=== PATIENT | male | born 1990 | race Caucasian/White ===

== ENCOUNTER 2023-08-31 13:11 | Inpatient (IN) | payer MEDICAID ==
[~2023-08-31] VITALS: Ht 182.9 cm; Wt 86.6 kg
[2023-08-31 13:16] VITALS: O2SAT 96
[2023-08-31 14:29] LABS: DIFFERENTIAL COMMENT 1; HEMATOCRIT. 42.8 % (42.0-52.0); HEMOGLOBIN. 14.5 g/dL (14.0-18.0); MEAN CORPUSCULAR HEMOGLOBIN 30.9 pg (28.0-32.0); MEAN CORPUSCULAR VOLUME 90.8 fL (80.0-94.0); MEAN PLATELET VOLUME 7.6 fl (7.4-10.4); PLATELET 306 x1000/uL (130-400); RED BLOOD CELL COUNT 4.71 mill/uL (4.7-6.1); RED CELL DISTRIBUTION WIDTH 12.8 % (11.6-14.6); WHITE BLOOD COUNT 18.7 x1000/uL (4.5-11.0)
[2023-08-31 15:00] LABS: PLATELET ESTIMATE NORMAL
[2023-08-31 15:06] LABS: CHLORIDE 112 mEq/L (98-107); INDEX HEMOLYSI 1 (1-3); INDEX ICTERIC 1 (1-4); INDEX LIPEMIC 1 (1-3); POTASSIUM 3.6 mEq/L (3.5-5.1); SODIUM 141 mEq/L (136-145)
[2023-08-31 15:20] LABS: ALANINE AMINOTRANSFERASE 39 IU/L (13-61); ALBUMIN 3.5 g/dL (3.4-5.0); ASPARTATE AMINOTRANSFERASE 27 IU/L (15-37); BILIRUBIN TOTAL 0.3 mg/dL (0.1-1.0); CALCIUM 8.3 mg/dL (8.5-10.1); CARBON DIOXIDE 20 mEq/L (21-32); CREATININE 1.1 mg/dL (0.6-1.3); ETHANOL BLOOD < 10 mg/dL (<10); GLUCOSE 138 mg/dL (70-105); NT PRO B-TYPE NATRIURETIC PEP 23 pg/mL (5-125); PROTEIN TOTAL 7.7 g/dL (6.0-8.3); TROPONIN I HIGH SENSITIVITY 14 ng/L (<78); UREA NITROGEN BLOOD 20 mg/dL (7-21)
[2023-08-31 15:37] LABS: BG BASE EXCESS -3.6 mmol/L (-2.0-2.0); BG CARBOXYHEMOGLOBIN 0.9 % (0.5-1.5); BG METHEMOGLOBIN 0.3 % (0.0-1.5); BG OXYGEN SATURATION 83.8 % (92.0-98.5); BG OXYHEMOGLOBIN 82.8 % (94.0-97.0); BG PH 7.372 (7.350-7.450); BG PO2 47.6 mmHg (75.0-100.0); BG SAMPLE SITE RIGHT BRACHIAL; BG TOTAL HEMOGLOBIN 15.3 g/dL (12.0-18.0); BG VENT MODE ROOM AIR
[2023-08-31] MEDS ORDERED: CEFTRIAXONE 1GM PREMIX 50 ML IV ONE (16:00)
[2023-08-31] MEDS ORDERED: SODIUM CHLORIDE 0.9% 1,000 ML IV ONE (16:00)
[2023-08-31] MEDS ORDERED: AZITHROMYCIN 500MG/250ML 250 ML IV ONE (16:00)
[2023-08-31] MEDS ORDERED: ONDANSETRON HCL 4MG/2ML INJ IV PRN (17:30)
[2023-08-31] MEDS ORDERED: ACETAMINOPHEN 325MG TABLET PO PRN (17:30)
[2023-08-31] MEDS ORDERED: NALOXONE HCL 0.4 MG/ML 1ML VIAL IV PRN (17:30)
[2023-08-31 20:00] VITALS: BP 114/72; PULSE 95; RESP 20; TEMP 99
[2023-08-31 20:30] VITALS: BP 114/72; PULSE 95; RESP 20; TEMP 99
[2023-08-31] MEDS ORDERED: METRONIDAZOLE 500 MG PREMIX 100 ML IV SCH (22:00)
[2023-08-31] MEDS: METRONIDAZOLE 500 MG PREMIX 100 ML IV SCH (22:35)
[2023-09-01] VITALS (7 sets, daily range): BP systolic 106–125; BP diastolic 57–75; PULSE 82–93; RESP 18–20; TEMP 97.4–99.1
[2023-09-01] MEDS: METRONIDAZOLE 500 MG PREMIX 100 ML IV SCH ×3 (05:06→21:31)
[2023-09-01 06:12] LABS: BASOPHILS % 0.4 % (0.0-2.0); EOSINOPHILS % 0.4 % (0.0-5.0); HEMATOCRIT. 38.1 % (42.0-52.0); LYMPHOCYTES % 17.9 % (20.0-50.0); MEAN CORPUSCULAR HEMOGLOBIN 30.5 pg (28.0-32.0); MEAN CORPUSCULAR VOLUME 89.5 fL (80.0-94.0); MEAN PLATELET VOLUME 8.1 fl (7.4-10.4); MONOCYTES % 4.6 % (2.0-8.0); NEUTROPHILS % 76.7 % (40.0-76.0); PLATELET 303 x1000/uL (130-400); RED BLOOD CELL COUNT 4.26 mill/uL (4.7-6.1); WHITE BLOOD COUNT 19.3 x1000/uL (4.5-11.0)
[2023-09-01 07:28] LABS: CHLORIDE 110 mEq/L (98-107); INDEX HEMOLYSI 1 (1-3); INDEX ICTERIC 1 (1-4); INDEX LIPEMIC 1 (1-3); POTASSIUM 3.6 mEq/L (3.5-5.1); SODIUM 140 mEq/L (136-145)
[2023-09-01 07:53] LABS: CARBON DIOXIDE 25 mEq/L (21-32); GLUCOSE 97 mg/dL (70-105); UREA NITROGEN BLOOD 12 mg/dL (7-21)
[2023-09-01] MEDS ORDERED: CEFTRIAXONE 1,000 MG in DEXTROSE 5% WATER 50 ML IV SCH (09:00)
[2023-09-01] MEDS: CEFTRIAXONE 1,000 MG in DEXTROSE 5% WATER 50 ML IV SCH (11:25)
[2023-09-01 16:47] LABS: BG BASE EXCESS -0.1 mmol/L (-2.0-2.0); BG CARBOXYHEMOGLOBIN 0.8 % (0.5-1.5); BG DEOXYHEMOGLOBIN 4.3 % (0.0-5.0); BG FRACTION INSPIRED OXYGEN 21; BG HCO3 ACT 23.6 mmol/L (22.0-26.0); BG OXYGEN SATURATION 95.7 % (92.0-98.5); BG OXYHEMOGLOBIN 94.9 % (94.0-97.0); BG PH 7.435 (7.350-7.450); BG PO2 76.2 mmHg (75.0-100.0); BG SAMPLE SITE RIGHT BRACHIAL; BG TOTAL HEMOGLOBIN 14.5 g/dL (12.0-18.0); BG VENT MODE ROOM AIR
[2023-09-01] MEDS ORDERED: IPRATROPIUM/ALBUTEROL 0.5-3(2.5)MG/3ML NEB HHN PRN (17:15)
[2023-09-01] MEDS: LORAZEPAM 2MG/ML CPJ IV PRN ×2 (18:21→23:06)
[2023-09-02 04:00] VITALS: BP 116/74; PULSE 89; RESP 18; TEMP 97.9
[2023-09-02] MEDS: METRONIDAZOLE 500 MG PREMIX 100 ML IV SCH ×2 (05:50→13:36)
[2023-09-02 06:41] LABS: BASOPHILS % 0.5 % (0.0-2.0); EOSINOPHILS % 2.6 % (0.0-5.0); HEMOGLOBIN. 14.4 g/dL (14.0-18.0); LYMPHOCYTES % 21.1 % (20.0-50.0); MEAN CORPUSCULAR HEMOGLOBIN 31.4 pg (28.0-32.0); MEAN CORPUSCULAR HGB CONC 35.2 g/dL (31.0-37.0); MEAN CORPUSCULAR VOLUME 89.1 fL (80.0-94.0); MONOCYTES % 6.3 % (2.0-8.0); NEUTROPHILS % 69.5 % (40.0-76.0); PLATELET 316 x1000/uL (130-400)
[2023-09-02 08:00] VITALS: BP 115/71; PULSE 79; RESP 20; TEMP 97.2
[2023-09-02] MEDS ORDERED: LIDOCAINE 5% PATCH TOP SCH (10:00)
[2023-09-02] MEDS: CEFTRIAXONE 1,000 MG in DEXTROSE 5% WATER 50 ML IV SCH (10:18)
[2023-09-02] MEDS: LORAZEPAM 2MG/ML CPJ IV PRN ×2 (10:32→16:28)
[2023-09-02 12:00] VITALS: BP 123/74; PULSE 113; RESP 0; TEMP 97.8
[2023-09-02 13:33] LABS: CHLORIDE 108 mEq/L (98-107); INDEX HEMOLYSI 2 (1-3); INDEX ICTERIC 1 (1-4); INDEX LIPEMIC 1 (1-3); POTASSIUM 3.9 mEq/L (3.5-5.1); SODIUM 137 mEq/L (136-145)
[2023-09-02 13:59] LABS: CALCIUM 8.8 mg/dL (8.5-10.1); CREATININE 0.9 mg/dL (0.6-1.3); GLUCOSE 91 mg/dL (70-105); UREA NITROGEN BLOOD 11 mg/dL (7-21)
[2023-09-02 15:51] LABS: CARBON DIOXIDE 19 mEq/L (21-32)
[2023-09-02 16:00] VITALS: BP 118/75; PULSE 62; RESP 20; TEMP 98
[2023-09-02] MEDS ORDERED: AMOX1TAB16 MT (16:05)
[2023-09-02 17:56] VITALS: BP 123/76; PULSE 103; TEMP 97.8
== END 2023-09-02 18:30 | disposition home or self-care (01) | DRG 812 ==
LOC: ER 14:15 → 5WST 17:26 → 7WST 09-01 17:10
PROVIDERS: ADMIT Family Medicine Adult Medicine; ATTEND Family Medicine Adult Medicine
DX: T40.411A Poisoning by fentanyl or fentanyl analogs, accidental (unintentional), initial encounter (principal); J96.01 Acute respiratory failure with hypoxia; G92.8 Other toxic encephalopathy; A41.9 Sepsis, unspecified organism; Z20.822 Contact with and (suspected) exposure to COVID-19; J68.0 Bronchitis and pneumonitis due to chemicals, gases, fumes and vapors; F17.210 Nicotine dependence, cigarettes, uncomplicated; Z79.899 Other long term (current) drug therapy
CPT/HCPCS: 36415; 36600; 71045; 80048; 80053; 80320; 82375; 82805; 83605; 83880; 84145; 84484; 85025; 87426; 87804; 93005; 96365; 96368; 99291; C9803; J0456; J0696; J2060; J3490; J7030; J7060; G0480